=== PATIENT | male | born 1935 | race Caucasian/White ===

== ENCOUNTER 2016-09-05 09:47 | Day surgery (SDC) | payer MEDICARE, BC ==
[2016-09-04 13:54] VITALS: BMI 27.6
[~2016-09-05] VITALS: Ht 170.2 cm; Wt 79.1 kg
[2016-09-05] VITALS (23 sets, daily range): BP systolic 122–168; BP diastolic 61–90; PULSE 78–105; RESP 11–24; Ht 170.2 cm; Wt 79.1 kg
[2016-09-05] MEDS ORDERED: ASPI-664 PO ×2 (10:51→10:55)
[2016-09-05] MEDS ORDERED: FAMO20TA18 PO (10:51)
[2016-09-05] MEDS ORDERED: LIRA0.6P SQ (10:52)
[2016-09-05] MEDS ORDERED: METF-388 PO (10:52)
[2016-09-05] MEDS ORDERED: IRBE300T15 PO (10:53)
[2016-09-05] MEDS ORDERED: CLOP75TA27 PO (10:53)
[2016-09-05] MEDS ORDERED: ATOR40TA68 PO (10:53)
[2016-09-05] MEDS ORDERED: PANT40TA3 PO (10:54)
[2016-09-05] MEDS ORDERED: BICA50TA PO (10:54)
[2016-09-05] MEDS ORDERED: LEVO88TA42 PO (10:55)
[2016-09-05] MEDS ORDERED: SOD CHLORIDE 0.9% 1,000 ML IV SCH (11:00)
[2016-09-05 11:13] LABS: BASOPHILS % 0.5 % (0.0-2.0); EOSINOPHILS # 0.2 10^3/ul (0.0-0.5); HEMATOCRIT 40.2 % (42.0-52.0); HEMOGLOBIN 13.8 g/dl (14.0-18.0); LYMPHOCYTES # 1.9 10^3/ul (0.8-2.9); LYMPHOCYTES % 23.3 % (15.0-51.0); MEAN CORPUSCULAR HEMOGLOBIN 31.9 pg (29.0-33.0); MEAN CORPUSCULAR HGB CONC 34.4 g/dl (32.0-37.0); MEAN CORPUSCULAR VOLUME 92.7 fl (82.0-101.0); MEAN PLATELET VOLUME 8.6 fl (7.4-10.4); MONOCYTE # 0.6 10^3/ul (0.3-0.9); MONOCYTES % 7.9 % (0.0-11.0); NEUTROPHIL # 5.3 10^3/ul (1.6-7.5); NEUTROPHILS % 66.3 % (39.0-77.0); PLATELET COUNT 214 10^3/UL (140-440); RED BLOOD COUNT 4.34 10^6/ul (4.70-6.10); RED CELL DISTRIBUTION WIDTH 13.2 % (11.5-14.5)
--- NOTE | 2016-09-05 11:14 | RADRPT ---
PROCEDURE: XR Chest. CLINICAL INDICATION: Preoperative. TECHNIQUE: Single frontal view. COMPARISON: 06/05/2016. FINDINGS: The lungs are clear. The heart size is normal. There is calcification in the aorta consistent with atherosclerosis. There is no pleural effusion. There is no pneumothorax. IMPRESSION: 1. Atherosclerosis. 2. Otherwise normal chest radiograph. RPTAT: QQ .Yuriy Schultz MD, MD Date Time Electronically viewed and signed by .Yuriy Schultz MD, on 09/05/2016 11:14 .R/
[2016-09-05 11:16] LABS: CONDITION 1
[2016-09-05 11:22] LABS: INR 0.97; PROTIME 12.9 Sec (12.2-14.2)
[2016-09-05 11:38] LABS: POTASSIUM 4.4 mmol/L (3.5-5.1)
[2016-09-05 11:39] LABS: CALCIUM 9.4 mg/dl (8.4-10.2); CREATININE 1.08 mg/dl (0.61-1.24)
[2016-09-05 11:53] LABS: PARTIAL THROMBOPLASTIN TIME 24.9 Sec (25.0-35.0)
[2016-09-05] MEDS ORDERED: INSULIN ASPART [NOVOLOG] 3 ML PEN SC ONE (12:00)
[2016-09-05] MEDS ORDERED: IODIXANOL LOCM 100 ML BTL ONE (12:40)
[2016-09-05] MEDS ORDERED: LIDOCAINE 1% (MDV) 20 ML INJ ONE (12:40)
[2016-09-05] MEDS ORDERED: HEPARIN 1000 UNITS/NS (A-LINE) 1,000 ML ONE (12:40)
[2016-09-05] MEDS ORDERED: HEPARIN 1000 UNITS/ML 10 ML INJ ONE (12:40)
[2016-09-05] MEDS ORDERED: MIDAZOLAM 1 MG/ML 2 ML INJ ONE (12:41)
[2016-09-05] MEDS ORDERED: FENTAnyl 50 MCG/ML VIAL ONE (12:41)
--- NOTE | 2016-09-05 13:25 | PDOCDIS ---
Discharge Instructions DIAGNOSIS Discharge Diagnosis: ESRD CONDITION Patient Condition: Good HOME CARE INSTRUCTIONS: Diet Instructions: Regular ACTIVITY: Activity Restrictions: Rest between Activity Avoid heavy lifting No Sexual Activity Do not Drive Do not operate Machinery Do not operate Power Tool Avoid Heavy Housework FOLLOW UP/APPOINTMENTS Appointments FOLLOWUP WITH [facility] IN 2 WEEKS MAY SHOWER TOMORROW MAY REMOVE DRESSING TOMORROW INDERJIT LOPEZ MD Sep 05, 2016 13:25
[2016-09-05] MEDS ORDERED: CLOPIDOGREL 75 MG TAB ONE (14:35)
[2016-09-05] MEDS: INSULIN ASPART [NOVOLOG] 3 ML PEN SC SCH ×2 (15:21→17:32)
[2016-09-05] MEDS ORDERED: GLUCOSE GEL 15 GRAM TUBE BUCCAL PRN (15:30)
[2016-09-05] MEDS ORDERED: GLUCAGON 1 MG INJ IM PRN (15:30)
[2016-09-05] MEDS ORDERED: GLUCOSE GEL 15 GRAM TUBE PO PRN ×2 (15:30)
[2016-09-05] MEDS ORDERED: DEXTROSE 50% 50 ML SYRINGE IV PRN ×2 (15:30)
--- NOTE | 2016-09-06 15:15 | OPR ---
DATE OF OPERATION: 09/05/2016 SURGEON: Nathan Jenkins MD FLUOROSCOPY HARDING: Ki Daugherty MD PREOPERATIVE DIAGNOSIS: Left lower extremity rest pain. POSTOPERATIVE DIAGNOSIS: Left lower extremity rest pain. ANESTHESIA: Local with sedation. ESTIMATED BLOOD LOSS: Minimal. COMPLICATIONS: None. HEPARIN: 7,000 units of heparin intravenously. CONTRAST: As recorded. ACCESS: Left common femoral artery antegrade access with a 5-[place]i sheath. CLOSURE: Manual compression Angio-Seal closure device. INDICATIONS: This is an 81-year-old gentleman who presented with bilateral lower extremity atherosc lerotic disease and rest pain with some minor tissue loss. The patient had nonpalpable pedal pulses . The patient underwent a previous angiogram back in May which identified the patient having se curry tibial and pedal disease. At that time, the patient wanted to wait to see if he can tolerate h is rest pain prior to having any intervention. The patient's progress has slowly worsened over the past few months, and he was not able to tolerate his rest pain and wanted to have an endovascular in tervention done. Of note, the patient has had his previous left greater saphenous vein harvested an d does not have a vein in that leg; therefore, he wanted to have an endovascular intervention done. The patient had been informed of the alternatives, risks, and benefits of angiogram, balloon angiop lasty, stenting, and atherectomy. Risks including but not limited to bleeding, thrombosis, emboliza tion, myocardial infarction, , stroke, device malfunction, infection, nephrotoxicity. The alexis ent has agreed to proceed. This is the first diagnostic angiogram. PROCEDURE: 1. Ultrasound-guided access of the left common femoral artery in an antegrade fashion. 2. Left lower extremity angiogram. 3. Balloon angioplasty of the peroneal artery with 2.5 x 220 mm balloon. 4. Balloon angioplasty of the tibioperoneal trunk with 3 x 220 mm balloon. FINDINGS: 1. Left common femoral artery patent. 2. Left profunda femoral artery patent. 3. Left superficial femoral artery patent with calcification. 4. Left above knee popliteal artery patent. 5. Left at knee popliteal artery with mild disease. 6. Left below knee popliteal artery with mild disease. 7. Left anterior tibial artery occluded, left posterior tibial artery occluded, left tibioperoneal trunk with mild to moderate disease. 8. Left peroneal artery with moderate to severe disease throughout with some communicating branch t o the foot. 9. There is some arborization for vessels that are just collaterals. POST-INTERVENTION: Adequate inflow from the below knee popliteal artery to the foot through the per coffman artery that had been angioplastied. DESCRIPTION OF PROCEDURE: The patient was brought into the angio suite and positioned in the supine position on the fluoroscopic table. Sedation was administered without any complications. Bilatera l groins were shaved, prepped, and draped in the usual standard sterile fashion. Time out was perfo rmed. Appropriate site was marked and confirmed. Local anesthesia was then infiltrated in the christian on of the left common femoral artery. The target was then cannulated with the micro access needle under ultrasound guidance, and a Guidewi re was advanced into the distal superficial femoral artery under fluoroscopic guidance. This was do ne in an antegrade approach. The needle was then removed and a micro catheter was placed. A Bentso n wire was then passed into the distal SFA under fluoroscopic guidance followed by a short 5-[place] sheath over the wire. The sheath was then appropriately flushed with heparinized saline solution. At this point, a left lower extremity angiogram was performed. Findings are noted above. At this p oint, it was determined that the patient had severe tibioperoneal and peroneal artery disease in i ch he would require an intervention. Using a Glidewire and a guiding catheter, we used it to select out the peroneal artery in a second order fashion, and I was able to pass the wire to the distal mo st aspect of the peroneal artery. At this point, the Glidewire was removed, and we used an 0.14 wir e that was positioned in the distal most aspect of the communicating branch of the peroneal artery. Intravenous heparin was given with appropriate ACT. At this point, using a 2.5 mm x 220 mm balloon , angioplasty of the peroneal artery was performed. Following this, a 3 x 220 mm balloon was used t o perform angioplasty of the tibioperoneal trunk and the remainder of the peroneal artery. Once thi s was established, a completion angiogram was performed that demonstrated adequate inflow from the b elow knee popliteal artery to the foot. The patient also was checked for improved capillary refill which was also identified. Sheaths, catheters, and wires were all removed. Angio-Seal closure abundio ce was then deployed in the left groin. Pressure was held, and the patient was taken to the postane sthesia care unit in stable condition. PLAN: Essentially, the patient has severe tibiopedal disease bilaterally. I will continue with our vascular surveillance and monitoring. We will plan to have the patient return to our office in 2 w eeks and continue on his dual antiplatelet therapy, aspirin and Plavix. Dictated By: NATHAN GUTIERREZ/EMIL Conf#: [id number] DID#: [id number]
--- NOTE | 2016-09-06 22:55 | RADRPT ---
Vent Rate: 93 bpm RR Interval: 0 msec IN Interval: 222 msec QRS Duration: 80 msec QT Interval: 348 msec QTC Interval: 432 msec P-R-T [place]: 33 - -9 - 55 degrees Sinus rhythm with 1st degree AV block Otherwise normal ECG Electronically Signed By: Gal Friedman [id number]
== END 2016-09-05 19:05 | disposition home or self-care (01) ==
LOC: SDS 09:47
PROVIDERS: ATTEND Thoracic Surgery (Cardiothoracic Vascular Surgery)
DX: I73.9 Peripheral vascular disease, unspecified (principal); I77.1 Stricture of artery
CPT/HCPCS: 37228; 37232; 71010; 75630; 80048; 82962; 85025; 85610; 85730; 93005; C1725; C1760; C1769; C1887; C1894; J1644; J1815; J2250; J3010; Q9967